=== PATIENT | male | born 1955 | race Caucasian/White ===

== ENCOUNTER → 2023-09-25 06:50 | Day surgery (SDC) | payer BC, SELFPAY ==
--- NOTE | 2023-09-25 07:54 | ITS.CL.IMPLP ---
Consulting Psychologist - Implant Loop
Implant Loop
Procedure Report:
Date of Procedure: 09/25/23
Primary Care Provider: Dr Jordyn Diaz
Procedure: Insertable Loop Recorder Implantation
Indication:
Atrial fibrillation
Mr Austin had CABG at [facility] with Dr Davis 09/27/22.�Post operatively, he wore a Medilynx monitor (October 2022) with 4% AF burden. Aspirin was stopped and changed to Eliquis 5 mg bid. CHADSVASc 3, (HTN + age, cad).
AF diagnosis pre-dates CABG surgery. 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
He strongly wishes to avoid long-term oral anticoagulation.
We checked a 7-day continuous monitor, Ztoryy which failed to show atrial fibrillation. We are now proceeding with implantation of a loop recorder and maintaining oral anticoagulation for the next 3 to 6 months. After this timeframe if there is no
atrial fibrillation we could stop oral anticoagulation with plans to resume only if we see recurrence of atrial fibrillation.
Procedure:
The patient was brought to the procedure area in a fasting state. The anterior chest was prepped and draped in standard sterile fashion. The fourth intercostal space along the left sternal border was identified and this area was anesthetized with 10
mL of 1% lidocaine. After gathering the skin in this area, a small punch incision was made at approx intercostal space 4-5 at left costo-sternal junction using the provided scalpel/punch tool. The loop recorder was loaded into the tunneling device.
A tunnel was created in the subcutaneous tissue at a 45� angle along the coronal plane away from the sternum and towards the left flank. The tunneling device was inverted and the plunger was depressed, inserting the loop recorder into the
subcutaneous space. The tunneling device was removed. Manual pressure provide hemostasis. Adequate signal was confirmed. The skin was closed with steri-strips. The estimated blood loss was < 1 cc. A clean dressing was placed over the wound.
There were no complications.
Implant:
Med[employer]onic Reveal LINQII
Conclusion: Uncomplicated implantation of loop recorder.
Recommendation: Routine ILR care.
Copy: Dr Jordyn Diaz
== END | disposition home or self-care (01) ==
LOC: CATH 06:50
PROVIDERS: ATTENDING PHYSICIAN Internal Medicine Cardiovascular Disease; FAMILY PHYSICIAN Family Medicine
DX: Z09 Encounter for follow-up examination after completed treatment for conditions other than malignant neoplasm (principal); I48.91 Unspecified atrial fibrillation; Z95.1 Presence of aortocoronary bypass graft; Z79.01 Long term (current) use of anticoagulants; I10 Essential (primary) hypertension; I25.10 Atherosclerotic heart disease of native coronary artery without angina pectoris
CPT/HCPCS: 33285; C1764